=== PATIENT | male | born 1955 | race African-American/Black ===

== ENCOUNTER 2019-06-09 08:37 | Day surgery (SDC) | payer OTHER, MEDICARE ==
[~2019-06-09 08:37] MED LIST: PROPOFOL INJ 200 MG/20 ML VIAL IV ONE
[2019-06-09] MEDS ORDERED: PROPOFOL INJ 200 MG/20 ML VIAL IV ONE (10:41)
[2019-06-09 11:30] VITALS: BP 132/84
--- NOTE | 2019-06-09 11:42 | Operative Report ---
Operative Report DATE OF SURGERY: 06/09/19 Operative Report: The risks, benefits and alternatives of the procedure including the risk of bleeding, perforation requiring surgery have been explained to the patient in detail and informed consent has been obtained. The patient is taken back to the endoscopy suite and placed in the left, lateral decubital position. Timeout was called. Propofol medication is administered. Rectal examination is done which did not reveal any masses, tears or fissures. An Olympus videoscope was introduced into the patient's rectum. Scope was then carefully advanced all the way to the cecum. Cecum was identified by the usual anatomical landmarks including the ileocecal valve as well as the appendiceal office. Photodocumentation is obtained. Scope was then sequentially pulled back via the various segments of the colon including the ascending colon, hepatic flexure, transverse colon, splenic flexure, descending colon finding to the rectosigmoid portions of the colon. Retroflexion maneuvers performed. PREOPERATIVE DIAGNOSIS: Colorectal cancer screening POSTOPERATIVE DIAGNOSIS: Poor prep of the colon however was able to get to the cecum. Sigmoid colon polyp that is removed via biopsy forceps. Possible melanosis coli on the right-hand side of the colon status post biopsy OPERATION: Colonoscopy with biopsy SURGEON: ANTHONY ROSADO ANESTHESIA: LMAC TISSUE REMOVED OR ALTERED: As noted above. COMPLICATIONS: None. ESTIMATED BLOOD LOSS: None. INTRAOPERATIVE FINDINGS: As noted above. PROCEDURE: Patient tolerated the procedure well. No immediate postprocedure complications are noted. Patient is discharged in good condition. Discharge date 06/09/2019. Discharge diet: Regular. Discharge activity: Regular. 2 to 3-week follow-up to discuss findings. 5-year surveillance colonoscopy. Patient is instructed to call the office or proceed to the emergency room should there be any further problems or questions. Wait on the pathology.
== END 2019-06-09 11:19 | disposition home or self-care (01) ==
LOC: END 08:37
PROVIDERS: ATTEND Internal Medicine Gastroenterology
DX: Z12.11 Encounter for screening for malignant neoplasm of colon (principal); K63.89 Other specified diseases of intestine; D12.5 Benign neoplasm of sigmoid colon
CPT/HCPCS: 45380; 88305 ×2; 00811; J2704; 811